=== PATIENT | female | born 1950 | race African-American/Black ===

== ENCOUNTER 2019-06-16 09:57 | Inpatient (IN) | payer MEDICAID, OTHER ==
[~2019-06-16] VITALS: Ht 162.6 cm; Wt 149.7 kg
[2019-06-16] MEDS ORDERED: MORPHINE SULFATE 4 MG/ML CPJ (NOT FOR IM USE) IV STA (10:17)
[2019-06-16] MEDS ORDERED: SODIUM CHLORIDE 0.9% 1,000 ML IV ONE (10:17)
[2019-06-16] MEDS ORDERED: VANCOMYCIN 1 G PREMIX 200 ML IV ONE (10:30)
[2019-06-16] MEDS ORDERED: PIPERACILLIN/TAZ 3.375G PREMIX 50 ML IV ONE (10:30)
[2019-06-16 11:32] LABS: BASOPHILS % 0.6 % (0.0-2.0); EOSINOPHILS % 0.5 % (0.0-5.0); HEMATOCRIT. 35.1 % (36.0-48.0); HEMOGLOBIN. 11.1 g/dL (12.0-16.0); LYMPHOCYTES % 12.5 % (20.0-50.0); MEAN CORPUSCULAR HEMOGLOBIN 24.7 pg (28.0-32.0); MEAN CORPUSCULAR VOLUME 78.4 fL (81.0-99.0); MEAN PLATELET VOLUME 7.9 fl (7.4-10.4); MONOCYTES % 7.9 % (2.0-8.0); NEUTROPHILS % 78.5 % (40.0-76.0); PLATELET 432 x1000/uL (130-400); RED BLOOD CELL COUNT 4.48 mill/uL (4.2-5.4); RED CELL DISTRIBUTION WIDTH 17.3 % (11.6-14.6)
[2019-06-16 11:34] LABS: CHLORIDE 105 mEq/L (98-107)
[2019-06-16 11:35] LABS: INR 1.1; PROTHROMBIN TIME 11.4 sec (9.6-11.0)
[2019-06-16 15:56] LABS: CLARITY URINE TURBID (CLEAR); COLOR URINE YELLOW (YELLOW); KETONES URINE NEGATIVE (NEGATIVE); LEUKOCYTE ESTERASE URINE 3+ (NEGATIVE); NITRITE URINE POSITIVE (NEGATIVE); OCCULT BLOOD URINE 3+ (NEGATIVE); PH URINE 7.5 (4.5-8.0); PROTEIN URINE 1+ (NEGATIVE); SPECIFIC GRAVITY URINE 1.023 (1.005-1.030)
[2019-06-16] MEDS ORDERED: ONDANSETRON HCL 4MG/2ML INJ IV PRN (18:00)
[2019-06-16] MEDS ORDERED: IPRATROPIUM/ALBUTEROL 0.5-3(2.5)MG/3ML NEB HHN PRN (18:00)
[2019-06-16] MEDS ORDERED: LORAZEPAM 0.5MG TABLET PO PRN (18:00)
[2019-06-16 19:39] LABS: TOTAL IRON BINDING CAPACITY 166 ug/dL (250-450)
[2019-06-16 20:00] VITALS: BP 137/61
[2019-06-16] MEDS: PIPERACILLIN/TAZOBACTAM 3.375 G in DEXT 5% WATER 100 ML IV SCH (21:05)
[2019-06-16] MEDS: HYDROCODONE/ACETAMINOPHEN 5/325MG TABLET PO PRN (21:07)
[2019-06-16] MEDS: ACETAMINOPHEN 325MG TABLET PO PRN (21:08)
[2019-06-16] MEDS ORDERED: PIPERACILLIN/TAZOBACTAM 3.375 G/VIAL IV SCH (22:00)
[2019-06-16] MEDS: VANCOMYCIN 750 MG PREMIX 150 ML IV SCH (23:15)
[2019-06-16] MEDS: SODIUM CHLORIDE 0.9% 1,000 ML IV SCH (23:30)
[2019-06-17] VITALS: BP 132/83
[2019-06-17 00:08] VITALS: BP 135/97
[2019-06-17 04:00] VITALS: BP 122/67
[2019-06-17] MEDS ORDERED: DEXTROSE 50% WATER 50ML SYRINGE IV PRN (05:00)
[2019-06-17] MEDS: MORPHINE SULFATE 2 MG/ML CPJ (NOT FOR IM USE) IV PRN ×2 (05:10→17:15)
[2019-06-17] MEDS: BLOOD SUGAR DIAGNOSTIC STRIP TEST SCH ×4 (06:47→20:36)
[2019-06-17] MEDS: PIPERACILLIN/TAZOBACTAM 3.375 G in DEXT 5% WATER 100 ML IV SCH ×3 (06:47→21:55)
[2019-06-17] MEDS: HYDROCODONE/ACETAMINOPHEN 5/325MG TABLET PO PRN ×2 (06:48→13:52)
[2019-06-17] MEDS: INSULIN LISPRO 100 UNITS/ML SUBCUT SCH ×4 (08:26→21:49)
[2019-06-17] MEDS: ACETAMINOPHEN 325MG TABLET PO PRN (08:28)
[2019-06-17 10:06] LABS: BASOPHILS % 0.6 % (0.0-2.0); EOSINOPHILS % 3.4 % (0.0-5.0); HEMATOCRIT. 31.3 % (36.0-48.0); HEMOGLOBIN. 9.6 g/dL (12.0-16.0); LYMPHOCYTES % 21.5 % (20.0-50.0); MEAN CORPUSCULAR HEMOGLOBIN 24.4 pg (28.0-32.0); MEAN CORPUSCULAR VOLUME 79.2 fL (81.0-99.0); MEAN PLATELET VOLUME 7.9 fl (7.4-10.4); MONOCYTES % 8.2 % (2.0-8.0); NEUTROPHILS % 66.3 % (40.0-76.0); PLATELET 383 x1000/uL (130-400); RED BLOOD CELL COUNT 3.96 mill/uL (4.2-5.4); RED CELL DISTRIBUTION WIDTH 17.1 % (11.6-14.6)
[2019-06-17 10:11] LABS: CHLORIDE 110 mEq/L (98-107)
[2019-06-17 10:17] LABS: LDL CHOLESTEROL 42 mg/dL (5-100)
[2019-06-17 10:19] LABS: HDL CHOLESTEROL 32 mg/dL (40-59)
[2019-06-17] MEDS: VANCOMYCIN 750 MG PREMIX 150 ML IV SCH (16:44)
[2019-06-17] MEDS: SODIUM CHLORIDE 0.9% 1,000 ML IV SCH (17:30)
[2019-06-18] MEDS: VANCOMYCIN 750 MG PREMIX 150 ML IV SCH ×2 (03:52→16:35)
[2019-06-18] MEDS: PIPERACILLIN/TAZOBACTAM 3.375 G in DEXT 5% WATER 100 ML IV SCH ×3 (05:50→22:48)
[2019-06-18] MEDS: MORPHINE SULFATE 2 MG/ML CPJ (NOT FOR IM USE) IV PRN ×2 (06:08→16:59)
[2019-06-18] MEDS: BLOOD SUGAR DIAGNOSTIC STRIP TEST SCH ×4 (06:51→20:58)
[2019-06-18] MEDS: INSULIN LISPRO 100 UNITS/ML SUBCUT SCH ×4 (07:20→20:59)
[2019-06-18 08:30] VITALS: BP 148/88
[2019-06-18] MEDS: SODIUM CHLORIDE 0.9% 1,000 ML IV SCH (11:53)
[2019-06-18 12:11] VITALS: BP 80/62
[2019-06-18 16:20] VITALS: BP 144/84
[2019-06-18] MEDS: SODIUM HYPOCHLORITE 0.125% 473ML SOLUTION TOP SCH (16:58)
[2019-06-18 17:01] LABS: BASOPHILS % 0.6 % (0.0-2.0); EOSINOPHILS % 5.6 % (0.0-5.0); HEMATOCRIT. 32.1 % (36.0-48.0); LYMPHOCYTES % 25.9 % (20.0-50.0); MEAN CORPUSCULAR HEMOGLOBIN 24.9 pg (28.0-32.0); MEAN CORPUSCULAR VOLUME 79.7 fL (81.0-99.0); MEAN PLATELET VOLUME 7.6 fl (7.4-10.4); MONOCYTES % 7.6 % (2.0-8.0); NEUTROPHILS % 60.3 % (40.0-76.0); PLATELET 359 x1000/uL (130-400); RED BLOOD CELL COUNT 4.03 mill/uL (4.2-5.4); RED CELL DISTRIBUTION WIDTH 17.5 % (11.6-14.6)
[2019-06-18 17:08] LABS: CHLORIDE 108 mEq/L (98-107)
[2019-06-18] MEDS: NYSTATIN POWDER 15GM TOP SCH (17:27)
[2019-06-18] MEDS: ACETAMINOPHEN 325MG TABLET PO PRN (22:54)
[2019-06-19 06:42] LABS: EOSINOPHILS % 6.2 % (0.0-5.0); HEMATOCRIT. 33.8 % (36.0-48.0); HEMOGLOBIN. 10.6 g/dL (12.0-16.0); LYMPHOCYTES % 34.7 % (20.0-50.0); MEAN CORPUSCULAR HEMOGLOBIN 24.8 pg (28.0-32.0); MEAN CORPUSCULAR VOLUME 79.3 fL (81.0-99.0); MONOCYTES % 5.7 % (2.0-8.0); NEUTROPHILS % 52.4 % (40.0-76.0); RED BLOOD CELL COUNT 4.25 mill/uL (4.2-5.4); RED CELL DISTRIBUTION WIDTH 17.5 % (11.6-14.6)
[2019-06-19] MEDS: BLOOD SUGAR DIAGNOSTIC STRIP TEST SCH ×4 (07:08→21:00)
[2019-06-19 07:46] LABS: CHLORIDE 107 mEq/L (98-107)
[2019-06-19] MEDS: INSULIN LISPRO 100 UNITS/ML SUBCUT SCH ×4 (07:50→23:20)
[2019-06-19 08:00] VITALS: BP 121/66
[2019-06-19] MEDS: PIPERACILLIN/TAZOBACTAM 3.375 G in DEXT 5% WATER 100 ML IV SCH ×3 (10:00→22:17)
[2019-06-19] MEDS: SODIUM CHLORIDE 0.9% 1,000 ML IV SCH (10:00)
[2019-06-19] MEDS: NYSTATIN POWDER 15GM TOP SCH ×2 (10:01→17:46)
[2019-06-19] MEDS: SODIUM HYPOCHLORITE 0.125% 473ML SOLUTION TOP SCH ×2 (10:01→17:46)
[2019-06-19 12:00] VITALS: BP 136/88
[2019-06-19 14:04] LABS: MEAN PLATELET VOLUME 8.2 fl (7.4-10.4); PLATELET 336 x1000/uL (130-400)
[2019-06-19 16:00] VITALS: BP 140/80
[2019-06-19 20:00] VITALS: BP 133/76
[2019-06-19] MEDS: MORPHINE SULFATE 2 MG/ML CPJ (NOT FOR IM USE) IV PRN (23:51)
[2019-06-20] VITALS: BP 156/90
[2019-06-20] MEDS: SODIUM CHLORIDE 0.9% 1,000 ML IV SCH ×2 (03:54→23:45)
[2019-06-20 04:00] VITALS: BP 147/74
[2019-06-20] MEDS: VANCOMYCIN 750 MG PREMIX 150 ML IV SCH (05:53)
[2019-06-20] MEDS: BLOOD SUGAR DIAGNOSTIC STRIP TEST SCH ×4 (06:23→21:00)
[2019-06-20 06:45] LABS: CHLORIDE 109 mEq/L (98-107)
[2019-06-20 06:52] LABS: BASOPHILS % 0.6 % (0.0-2.0); EOSINOPHILS % 5.8 % (0.0-5.0); HEMATOCRIT. 32.2 % (36.0-48.0); HEMOGLOBIN. 10.1 g/dL (12.0-16.0); LYMPHOCYTES % 36.2 % (20.0-50.0); MEAN CORPUSCULAR HEMOGLOBIN 25.1 pg (28.0-32.0); MEAN CORPUSCULAR VOLUME 79.6 fL (81.0-99.0); MEAN PLATELET VOLUME 7.8 fl (7.4-10.4); MONOCYTES % 7.6 % (2.0-8.0); NEUTROPHILS % 49.8 % (40.0-76.0); PLATELET 341 x1000/uL (130-400); RED BLOOD CELL COUNT 4.04 mill/uL (4.2-5.4); RED CELL DISTRIBUTION WIDTH 17.3 % (11.6-14.6)
[2019-06-20] MEDS: INSULIN LISPRO 100 UNITS/ML SUBCUT SCH ×5 (07:50→23:07)
[2019-06-20 08:00] VITALS: BP 151/71
[2019-06-20] MEDS ORDERED: SODIUM BICARBONATE 4% (2.4MEQ) 5ML VIAL IV ONE (08:03)
[2019-06-20] MEDS ORDERED: LIDOCAINE HCL 1% 20ML VIAL (Pyxis) INJ ONE (08:03)
[2019-06-20] MEDS: SODIUM HYPOCHLORITE 0.125% 473ML SOLUTION TOP SCH ×2 (08:46→17:00)
[2019-06-20] MEDS: NYSTATIN POWDER 15GM TOP SCH ×2 (08:46→17:00)
[2019-06-20] MEDS: PIPERACILLIN/TAZOBACTAM 3.375 G in DEXT 5% WATER 100 ML IV SCH ×3 (09:39→22:53)
[2019-06-20 12:00] VITALS: BP 147/77
[2019-06-20 16:00] VITALS: BP_SYST 103; BP_SYST 146; BP_DIAS 68; BP_DIAS 83
[2019-06-20] MEDS: MORPHINE SULFATE 2 MG/ML CPJ (NOT FOR IM USE) IV PRN (17:54)
[2019-06-20 20:00] VITALS: BP 153/77
[2019-06-21] VITALS: BP 137/70
[2019-06-21 04:00] VITALS: BP 158/82
[2019-06-21] MEDS: PIPERACILLIN/TAZOBACTAM 3.375 G in DEXT 5% WATER 100 ML IV SCH ×3 (05:32→22:12)
[2019-06-21] MEDS: VANCOMYCIN 750 MG PREMIX 150 ML IV SCH (06:29)
[2019-06-21 08:00] VITALS: BP 159/83
[2019-06-21] MEDS: NYSTATIN POWDER 15GM TOP SCH ×2 (09:00→16:26)
[2019-06-21] MEDS: SODIUM HYPOCHLORITE 0.125% 473ML SOLUTION TOP SCH ×2 (10:02→16:26)
[2019-06-21 12:00] VITALS: BP 137/72
[2019-06-21] MEDS: BLOOD SUGAR DIAGNOSTIC STRIP TEST SCH ×3 (12:12→22:30)
[2019-06-21] MEDS: FERROUS SULFATE 325MG TABLET PO SCH (13:42)
[2019-06-21] MEDS: ASCORBIC ACID 500 MG TABLET PO SCH (13:42)
[2019-06-21] MEDS: ZINC SULFATE 220 MG ( 50 ) CAPSULE PO SCH (13:42)
[2019-06-21] MEDS: INSULIN LISPRO 100 UNITS/ML SUBCUT SCH ×3 (13:45→21:00)
[2019-06-21 16:00] VITALS: BP 149/87
[2019-06-21] MEDS: SODIUM CHLORIDE 0.9% 1,000 ML IV SCH (19:45)
[2019-06-21 20:00] VITALS: BP 134/74
[2019-06-22] VITALS: BP 138/88
[2019-06-22 04:00] VITALS: BP 136/71
[2019-06-22] MEDS: BLOOD SUGAR DIAGNOSTIC STRIP TEST SCH ×4 (07:06→21:00)
[2019-06-22 07:29] LABS: BASOPHILS % 0.5 % (0.0-2.0); EOSINOPHILS % 5.5 % (0.0-5.0); HEMATOCRIT. 29.2 % (36.0-48.0); HEMOGLOBIN. 9.2 g/dL (12.0-16.0); LYMPHOCYTES % 29.3 % (20.0-50.0); MEAN PLATELET VOLUME 7.6 fl (7.4-10.4); MONOCYTES % 6.8 % (2.0-8.0); NEUTROPHILS % 57.9 % (40.0-76.0); PLATELET 320 x1000/uL (130-400); RED BLOOD CELL COUNT 3.69 mill/uL (4.2-5.4); RED CELL DISTRIBUTION WIDTH 17.6 % (11.6-14.6)
[2019-06-22 07:46] LABS: CHLORIDE 113 mEq/L (98-107)
[2019-06-22] MEDS: INSULIN LISPRO 100 UNITS/ML SUBCUT SCH ×3 (07:50→17:50)
[2019-06-22] MEDS: ZINC SULFATE 220 MG ( 50 ) CAPSULE PO SCH (09:26)
[2019-06-22] MEDS: DOCUSATE SODIUM 100MG CAPSULE PO PRN (09:26)
[2019-06-22] MEDS: ASCORBIC ACID 500 MG TABLET PO SCH (09:26)
[2019-06-22] MEDS: FERROUS SULFATE 325MG TABLET PO SCH (09:26)
[2019-06-22] MEDS: SODIUM HYPOCHLORITE 0.125% 473ML SOLUTION TOP SCH ×2 (09:27→18:08)
[2019-06-22 12:20] VITALS: BP 129/74
[2019-06-22] MEDS: SODIUM CHLORIDE 0.9% 1,000 ML IV SCH (12:47)
[2019-06-22 16:00] VITALS: BP 140/66
[2019-06-22] MEDS: NYSTATIN POWDER 15GM TOP SCH ×2 (17:00→18:08)
[2019-06-23 03:47] VITALS: BP 136/77
[2019-06-23] MEDS: BLOOD SUGAR DIAGNOSTIC STRIP TEST SCH ×4 (07:20→21:00)
[2019-06-23] MEDS: INSULIN LISPRO 100 UNITS/ML SUBCUT SCH ×4 (07:50→21:00)
[2019-06-23 08:00] VITALS: BP 130/98
[2019-06-23] MEDS: FERROUS SULFATE 325MG TABLET PO SCH (09:36)
[2019-06-23] MEDS: ASCORBIC ACID 500 MG TABLET PO SCH (09:36)
[2019-06-23] MEDS: NYSTATIN POWDER 15GM TOP SCH ×2 (09:38→18:03)
[2019-06-23] MEDS: SODIUM HYPOCHLORITE 0.125% 473ML SOLUTION TOP SCH ×2 (09:38→18:03)
[2019-06-23] MEDS: SODIUM CHLORIDE 0.9% 1,000 ML IV SCH (09:39)
[2019-06-23] MEDS: ZINC SULFATE 220 MG ( 50 ) CAPSULE PO SCH (09:48)
[2019-06-23 10:27] LABS: BASOPHILS % 0.9 % (0.0-2.0); EOSINOPHILS % 5.6 % (0.0-5.0); HEMATOCRIT. 27.7 % (36.0-48.0); HEMOGLOBIN. 8.8 g/dL (12.0-16.0); MEAN CORPUSCULAR HEMOGLOBIN 25.2 pg (28.0-32.0); MEAN CORPUSCULAR VOLUME 79.2 fL (81.0-99.0); MEAN PLATELET VOLUME 7.6 fl (7.4-10.4); MONOCYTES % 6.5 % (2.0-8.0); PLATELET 304 x1000/uL (130-400)
[2019-06-23 10:32] LABS: CHLORIDE 111 mEq/L (98-107)
[2019-06-23 12:00] VITALS: BP 116/81
[2019-06-23 16:00] VITALS: BP 120/80
[2019-06-23 20:00] VITALS: BP 141/73
[2019-06-24] VITALS: BP 129/82
[2019-06-24 04:00] VITALS: BP 152/71
[2019-06-24] MEDS: BLOOD SUGAR DIAGNOSTIC STRIP TEST SCH ×4 (07:20→21:00)
[2019-06-24] MEDS: SODIUM CHLORIDE 0.9% 1,000 ML IV SCH (07:45)
[2019-06-24] MEDS: INSULIN LISPRO 100 UNITS/ML SUBCUT SCH ×4 (07:50→21:00)
[2019-06-24 08:11] VITALS: BP 127/76
[2019-06-24] MEDS: NYSTATIN POWDER 15GM TOP SCH ×2 (09:00→17:04)
[2019-06-24] MEDS: ZINC SULFATE 220 MG ( 50 ) CAPSULE PO SCH (10:42)
[2019-06-24] MEDS: ASCORBIC ACID 500 MG TABLET PO SCH (10:42)
[2019-06-24] MEDS: FERROUS SULFATE 325MG TABLET PO SCH (10:42)
[2019-06-24] MEDS: SODIUM HYPOCHLORITE 0.125% 473ML SOLUTION TOP SCH ×2 (10:44→17:04)
[2019-06-24 12:08] VITALS: BP 146/49
[2019-06-24] MEDS: ACETAMINOPHEN 325MG TABLET PO PRN (12:15)
[2019-06-24 16:09] VITALS: BP 155/83
[2019-06-24 20:00] VITALS: BP 147/91
[2019-06-25] VITALS: BP 151/86
[2019-06-25 04:00] VITALS: BP 149/74
[2019-06-25] MEDS: SODIUM CHLORIDE 0.9% 1,000 ML IV SCH (05:27)
[2019-06-25] MEDS: BLOOD SUGAR DIAGNOSTIC STRIP TEST SCH ×4 (07:45→19:57)
[2019-06-25] MEDS: INSULIN LISPRO 100 UNITS/ML SUBCUT SCH ×4 (07:45→21:00)
[2019-06-25 08:00] VITALS: BP 154/67
[2019-06-25] MEDS: NYSTATIN POWDER 15GM TOP SCH ×2 (08:35→17:44)
[2019-06-25] MEDS: FERROUS SULFATE 325MG TABLET PO SCH (08:35)
[2019-06-25] MEDS: ZINC SULFATE 220 MG ( 50 ) CAPSULE PO SCH (08:35)
[2019-06-25] MEDS: ASCORBIC ACID 500 MG TABLET PO SCH (08:35)
[2019-06-25 12:00] VITALS: BP 148/89
[2019-06-25 16:00] VITALS: BP 148/79
[2019-06-25 20:00] VITALS: BP 139/77
[2019-06-26 00:28] VITALS: BP 154/76
[2019-06-26 05:00] VITALS: BP 147/95
[2019-06-26] MEDS: CLONIDINE 0.1MG TABLET PO PRN (06:08)
[2019-06-26] MEDS: BLOOD SUGAR DIAGNOSTIC STRIP TEST SCH ×4 (06:31→20:39)
[2019-06-26] MEDS: INSULIN LISPRO 100 UNITS/ML SUBCUT SCH ×4 (07:50→20:39)
[2019-06-26 08:00] VITALS: BP 144/82
[2019-06-26] MEDS: ASCORBIC ACID 500 MG TABLET PO SCH (08:24)
[2019-06-26] MEDS: NYSTATIN POWDER 15GM TOP SCH ×2 (08:24→17:34)
[2019-06-26] MEDS: ZINC SULFATE 220 MG ( 50 ) CAPSULE PO SCH (08:24)
[2019-06-26 12:00] VITALS: BP 159/67
[2019-06-26 12:47] LABS: BASOPHILS % 0.6 % (0.0-2.0); EOSINOPHILS % 7.4 % (0.0-5.0); HEMOGLOBIN. 10.3 g/dL (12.0-16.0); LYMPHOCYTES % 32.6 % (20.0-50.0); MEAN CORPUSCULAR VOLUME 80.4 fL (81.0-99.0); MEAN PLATELET VOLUME 7.7 fl (7.4-10.4); MONOCYTES % 8.8 % (2.0-8.0); NEUTROPHILS % 50.6 % (40.0-76.0); PLATELET 303 x1000/uL (130-400); RED CELL DISTRIBUTION WIDTH 19.6 % (11.6-14.6)
[2019-06-26 12:49] LABS: CHLORIDE 113 mEq/L (98-107)
[2019-06-26 16:00] VITALS: BP 122/72
[2019-06-26 20:00] VITALS: BP 161/77
[2019-06-26] MEDS: SODIUM CHLORIDE 0.9% 1,000 ML IV SCH (20:30)
[2019-06-27] VITALS: BP 150/97
[2019-06-27 04:00] VITALS: BP 109/73
[2019-06-27] MEDS: BLOOD SUGAR DIAGNOSTIC STRIP TEST SCH ×4 (06:28→21:00)
[2019-06-27] MEDS: INSULIN LISPRO 100 UNITS/ML SUBCUT SCH ×4 (07:50→21:00)
[2019-06-27 08:00] VITALS: BP_SYST 159; BP_SYST 172; BP_DIAS 76; BP_DIAS 98
[2019-06-27] MEDS: ASCORBIC ACID 500 MG TABLET PO SCH (08:54)
[2019-06-27] MEDS: ZINC SULFATE 220 MG ( 50 ) CAPSULE PO SCH (08:54)
[2019-06-27] MEDS: NYSTATIN POWDER 15GM TOP SCH ×2 (08:54→17:41)
[2019-06-27 12:00] VITALS: BP 172/98
[2019-06-27] MEDS: CLONIDINE 0.1MG TABLET PO PRN (13:12)
[2019-06-27 16:00] VITALS: BP 123/102
[2019-06-27] MEDS: SODIUM CHLORIDE 0.9% 1,000 ML IV SCH (16:28)
[2019-06-27] MEDS: AMLODIPINE 5MG TABLET PO SCH (16:29)
[2019-06-27 20:00] VITALS: BP 142/62
[2019-06-28] VITALS: BP 106/70
[2019-06-28 04:00] VITALS: BP 147/68
[2019-06-28] MEDS: ACETAMINOPHEN 325MG TABLET PO PRN (05:01)
[2019-06-28] MEDS: INSULIN LISPRO 100 UNITS/ML SUBCUT SCH ×4 (07:48→21:00)
[2019-06-28] MEDS: BLOOD SUGAR DIAGNOSTIC STRIP TEST SCH ×4 (07:48→21:00)
[2019-06-28 08:00] VITALS: BP 148/72
[2019-06-28] MEDS: ASCORBIC ACID 500 MG TABLET PO SCH (09:37)
[2019-06-28] MEDS: ZINC SULFATE 220 MG ( 50 ) CAPSULE PO SCH (09:37)
[2019-06-28] MEDS: AMLODIPINE 5MG TABLET PO SCH (09:38)
[2019-06-28] MEDS: NYSTATIN POWDER 15GM TOP SCH ×2 (09:38→17:52)
[2019-06-28] MEDS: SODIUM CHLORIDE 0.9% 1,000 ML IV SCH (11:07)
[2019-06-28] MEDS: HYDROCODONE/ACETAMINOPHEN 5/325MG TABLET PO PRN (12:52)
[2019-06-28 16:00] VITALS: BP 119/53
[2019-06-28 20:00] VITALS: BP 149/56
[2019-06-29] VITALS: BP 145/69
[2019-06-29 04:00] VITALS: BP 119/62
[2019-06-29] MEDS: HYDROCODONE/ACETAMINOPHEN 5/325MG TABLET PO PRN ×2 (05:09→17:51)
[2019-06-29] MEDS: SODIUM CHLORIDE 0.9% 1,000 ML IV SCH (06:30)
[2019-06-29 07:14] LABS: EOSINOPHILS % 8.1 % (0.0-5.0); HEMATOCRIT. 30.6 % (36.0-48.0); HEMOGLOBIN. 9.8 g/dL (12.0-16.0); LYMPHOCYTES % 41.3 % (20.0-50.0); MEAN CORPUSCULAR HEMOGLOBIN 25.5 pg (28.0-32.0); MEAN CORPUSCULAR VOLUME 79.3 fL (81.0-99.0); MEAN PLATELET VOLUME 8.3 fl (7.4-10.4); MONOCYTES % 7.8 % (2.0-8.0); NEUTROPHILS % 41.8 % (40.0-76.0); PLATELET 228 x1000/uL (130-400); RED BLOOD CELL COUNT 3.86 mill/uL (4.2-5.4); RED CELL DISTRIBUTION WIDTH 19.9 % (11.6-14.6)
[2019-06-29 07:28] LABS: CHLORIDE 111 mEq/L (98-107)
[2019-06-29] MEDS: INSULIN LISPRO 100 UNITS/ML SUBCUT SCH ×4 (07:49→21:00)
[2019-06-29] MEDS: BLOOD SUGAR DIAGNOSTIC STRIP TEST SCH ×4 (07:49→21:00)
[2019-06-29 08:00] VITALS: BP 145/74
[2019-06-29] MEDS: ZINC SULFATE 220 MG ( 50 ) CAPSULE PO SCH (09:54)
[2019-06-29] MEDS: ASCORBIC ACID 500 MG TABLET PO SCH (09:54)
[2019-06-29] MEDS: AMLODIPINE 5MG TABLET PO SCH (09:55)
[2019-06-29] MEDS: NYSTATIN POWDER 15GM TOP SCH ×2 (09:55→17:51)
[2019-06-29 12:00] VITALS: BP 162/80
[2019-06-29] MEDS: CLONIDINE 0.1MG TABLET PO PRN (13:14)
[2019-06-29 16:00] VITALS: BP 121/61
[2019-06-29 20:00] VITALS: BP 127/60
[2019-06-30] VITALS: BP 133/80
[2019-06-30 04:00] VITALS: BP 137/68
[2019-06-30 07:02] LABS: CHLORIDE 111 mEq/L (98-107)
[2019-06-30] MEDS: BLOOD SUGAR DIAGNOSTIC STRIP TEST SCH ×4 (07:20→21:00)
[2019-06-30] MEDS: INSULIN LISPRO 100 UNITS/ML SUBCUT SCH ×4 (07:50→21:00)
[2019-06-30 08:00] VITALS: BP 146/76
[2019-06-30] MEDS: NYSTATIN POWDER 15GM TOP SCH ×2 (09:00→17:00)
[2019-06-30] MEDS: ZINC SULFATE 220 MG ( 50 ) CAPSULE PO SCH (09:59)
[2019-06-30] MEDS: AMLODIPINE 5MG TABLET PO SCH (09:59)
[2019-06-30] MEDS: ASCORBIC ACID 500 MG TABLET PO SCH (09:59)
[2019-06-30 12:00] VITALS: BP 134/80
[2019-06-30 12:37] LABS: BASOPHILS % 1.3 % (0.0-2.0); EOSINOPHILS % 7.6 % (0.0-5.0); HEMATOCRIT. 34.9 % (36.0-48.0); HEMOGLOBIN. 11.2 g/dL (12.0-16.0); MEAN CORPUSCULAR HEMOGLOBIN 25.6 pg (28.0-32.0); MEAN CORPUSCULAR VOLUME 79.9 fL (81.0-99.0); MONOCYTES % 7.1 % (2.0-8.0); RED BLOOD CELL COUNT 4.36 mill/uL (4.2-5.4); RED CELL DISTRIBUTION WIDTH 19.9 % (11.6-14.6)
[2019-06-30 12:54] LABS: PLATELET 210 x1000/uL (130-400)
[2019-06-30] MEDS: HYDROCODONE/ACETAMINOPHEN 5/325MG TABLET PO PRN (17:06)
[2019-06-30 20:00] VITALS: BP 117/52
[2019-07-01 00:30] VITALS: BP 125/86
[2019-07-01 04:00] VITALS: BP 137/76
[2019-07-01] MEDS: BLOOD SUGAR DIAGNOSTIC STRIP TEST SCH ×4 (07:27→21:00)
[2019-07-01] MEDS: INSULIN LISPRO 100 UNITS/ML SUBCUT SCH ×4 (07:50→21:00)
[2019-07-01 08:00] VITALS: BP 147/76
[2019-07-01] MEDS: ZINC SULFATE 220 MG ( 50 ) CAPSULE PO SCH (08:57)
[2019-07-01] MEDS: AMLODIPINE 5MG TABLET PO SCH (08:57)
[2019-07-01] MEDS: ASCORBIC ACID 500 MG TABLET PO SCH (08:57)
[2019-07-01] MEDS: NYSTATIN POWDER 15GM TOP SCH ×2 (09:36→17:00)
[2019-07-01 12:00] VITALS: BP 135/90
[2019-07-01 16:00] VITALS: BP 126/65
[2019-07-01] MEDS: HYDROCODONE/ACETAMINOPHEN 5/325MG TABLET PO PRN (17:24)
[2019-07-01 20:00] VITALS: BP 127/74
[2019-07-02] VITALS: BP 144/85
[2019-07-02 04:00] VITALS: BP 127/78
[2019-07-02] MEDS: HYDROCODONE/ACETAMINOPHEN 5/325MG TABLET PO PRN ×3 (05:19→20:20)
[2019-07-02] MEDS: BLOOD SUGAR DIAGNOSTIC STRIP TEST SCH ×4 (06:21→20:59)
[2019-07-02] MEDS: INSULIN LISPRO 100 UNITS/ML SUBCUT SCH ×4 (07:50→21:36)
[2019-07-02 08:00] VITALS: BP 151/78
[2019-07-02] MEDS: ASCORBIC ACID 500 MG TABLET PO SCH (09:38)
[2019-07-02] MEDS: AMLODIPINE 5MG TABLET PO SCH (09:38)
[2019-07-02] MEDS: ZINC SULFATE 220 MG ( 50 ) CAPSULE PO SCH (09:38)
[2019-07-02] MEDS: SODIUM CHLORIDE 0.9% 1,000 ML IV SCH (09:40)
[2019-07-02 12:00] VITALS: BP 155/45
[2019-07-02 16:00] VITALS: BP 150/67
[2019-07-02 20:00] VITALS: BP 143/76
[2019-07-03] VITALS: BP 141/56
[2019-07-03 04:00] VITALS: BP 151/84
[2019-07-03] MEDS: BLOOD SUGAR DIAGNOSTIC STRIP TEST SCH ×4 (06:45→21:06)
[2019-07-03] MEDS: INSULIN LISPRO 100 UNITS/ML SUBCUT SCH ×4 (07:49→21:00)
[2019-07-03 08:00] VITALS: BP 146/74
[2019-07-03] MEDS: ZINC SULFATE 220 MG ( 50 ) CAPSULE PO SCH (08:48)
[2019-07-03] MEDS: DOCUSATE SODIUM 100MG CAPSULE PO PRN (08:49)
[2019-07-03] MEDS: ASCORBIC ACID 500 MG TABLET PO SCH (08:49)
[2019-07-03] MEDS: AMLODIPINE 5MG TABLET PO SCH (08:49)
[2019-07-03] MEDS: SODIUM CHLORIDE 0.9% 1,000 ML IV SCH (11:45)
[2019-07-03 12:00] VITALS: BP 154/85
[2019-07-03] MEDS: HYDROCODONE/ACETAMINOPHEN 5/325MG TABLET PO PRN (13:33)
[2019-07-03 16:00] VITALS: BP 155/70
[2019-07-03 20:00] VITALS: BP 136/64
[2019-07-04] VITALS (8 sets, daily range): BP systolic 122–160; BP diastolic 59–85
[2019-07-04] MEDS: CLONIDINE 0.1MG TABLET PO PRN (00:05)
[2019-07-04] MEDS: BLOOD SUGAR DIAGNOSTIC STRIP TEST SCH ×3 (07:00→17:20)
[2019-07-04] MEDS: INSULIN LISPRO 100 UNITS/ML SUBCUT SCH ×3 (07:01→17:27)
[2019-07-04] MEDS: SODIUM CHLORIDE 0.9% 1,000 ML IV SCH (07:45)
[2019-07-04] MEDS: ASCORBIC ACID 500 MG TABLET PO SCH (09:13)
[2019-07-04] MEDS: AMLODIPINE 5MG TABLET PO SCH (09:13)
[2019-07-04] MEDS: ZINC SULFATE 220 MG ( 50 ) CAPSULE PO SCH (09:13)
[2019-07-04] MEDS: HYDROCODONE/ACETAMINOPHEN 5/325MG TABLET PO PRN ×2 (13:33→20:19)
== END 2019-07-04 22:00 | DRG 720 ==
LOC: ER 09:57 → EDBEDREQTM 13:16 → EDBEDREQSVC 13:16 → EDBEDREQ 13:16 → ENRESERV 15:56 → 6WST 18:42 → 6EST 06-26 05:12
PROVIDERS: ADMIT Internal Medicine; ATTEND Internal Medicine
PROC: 02HV33Z Insertion of Infusion Device into Superior Vena Cava, Percutaneous Approach (ICD-10-PCS; principal; 2019-06-25)
PROC: B548ZZA Ultrasonography of Superior Vena Cava, Guidance (ICD-10-PCS; 2019-06-25)
DX: A41.9 Sepsis, unspecified organism (principal); R65.21 Severe sepsis with septic shock; G93.40 Encephalopathy, unspecified; I11.0 Hypertensive heart disease with heart failure; L89.159 Pressure ulcer of sacral region, unspecified stage; I50.32 Chronic diastolic (congestive) heart failure; E11.65 Type 2 diabetes mellitus with hyperglycemia; E66.01 Morbid (severe) obesity due to excess calories; D50.9 Iron deficiency anemia, unspecified; M24.411 Recurrent dislocation, right shoulder; N39.0 Urinary tract infection, site not specified; S31.000A Unspecified open wound of lower back and pelvis without penetration into retroperitoneum, initial encounter; Z74.01 Bed confinement status; Z79.84 Long term (current) use of oral hypoglycemic drugs; Z68.43 Body mass index [BMI] 50.0-59.9, adult
CPT/HCPCS: 36415; 71045; 76937; 80048; 80053; 80061; 80202; 81003; 82607; 82728; 82746; 82962; 83036; 83540; 83550; 83605; 84145; 84484; 85025; 93005; 99285; C1725; C1769; J1815; J2270; J2543; J3370; J3490; J7030; J7060